=== PATIENT | male | born 1995 | race Caucasian/White ===

== ENCOUNTER 2017-08-03 01:35 | Emergency (ER) | payer BC ==
[~2017-08-03] VITALS: Ht 180.3 cm; Wt 102.1 kg
--- OUTSIDE RECORDS SUMMARY | 2017-08-03 02:03 | External Medical Summary Rpt | CCD ---
Author Author , GERMAN PORTER Address Unknown Phone [email or web address] Care Team Providers Care Processing Supervisor Name Role Phone [facility] # Unavailable Unavailable [id number], [facility] # [id number] [id number] # Unavailable Unavailable [phone], [id number] # [id number] Purpose Continuity of Care Document - 07-31-2010 through 2016 Problems Code Diagnosis DOS Provider Status I95.1 Orthostatic hypotension R10.11 Right upper quadrant pain R11.2 Nausea with vomiting, unspecified R55 Syncope and collapse S33.5XXA Sprain of ligaments of lumbar spine, initial encounter Medications Na ND Rx Da Fi Fi Am Da Di Ph RX Ph St me C No te ll ll ou ys ag ar # ys at rm s nt no ma ic us Or Da si cy ia de te s n re d VY 59 09 10 0 30 30 KR 23 YING Ac VA 41 -3 -0 .0 OG 11 WL ti NS 70 0- 4- 00 ER 64 IN ve E 10 20 20 9 40 41 11 11 PH NV 0 AR CH MG MA AE CY L CA # PS UL 14 E 36 4 VY 59 08 08 0 30 30 KR 23 YING Ac VA 41 -3 -3 .0 OG 11 WL ti NS 70 0- 0- 00 ER 16 IN ve E 10 20 20 2 40 41 11 11 PH NV 0 AR CH MG MA AE CY L CA # PS UL 14 E 36 4 VY 59 07 07 0 30 30 KR 23 YING Ac VA 41 -1 -1 .0 OG 10 WL ti NS 70 5- 6- 00 ER 51 IN ve E 10 20 20 1 40 41 11 11 PH NV 0 AR CH MG MA AE CY L CA # PS UL 14 E 36 4 VY 59 05 05 0 30 30 KR 23 YING Ac VA 41 -0 -1 .0 OG 09 WL ti NS 70 9- 5- 00 ER 62 IN ve E 10 20 20 0 40 41 11 11 PH NV 0 AR CH MG MA AE CY L CA # PS UL 14 E 36 4 VY 59 04 04 0 30 30 WA 41 YING Ac VA 41 -0 -0 .0 LG 00 WL ti NS 70 8- 8- 00 RE 30 IN ve E 10 20 20 EN 40 41 11 11 S NV 0 #9 CH MG 36 AE 0 L CA # PS 93 UL 60 E VY 59 03 03 0 30 30 KR 23 LIO Ac VA 41 -0 -0 .0 OG 08 NE ti NS 70 4- 5- 00 ER 58 S ve E 10 20 20 5 SC 20 21 11 11 PH OT 0 AR T MG MA J CY CA # PS UL 14 E 36 4 CL 63 02 02 0 30 7 KR 63 YING Ac IN 30 -0 -0 .0 OG 15 WL ti DA 40 4- 4- 00 ER 40 IN ve MY 69 20 20 1 CI 30 11 11 PH NV N 1 AR CH HC MA AE L CY L 30 # 0 MG 14 36 CA 4 PS UL E AD 54 02 02 0 30 30 KR 23 YING Ac DE 09 -0 -0 .0 OG 08 WL ti RA 20 4- 4- 00 ER 14 IN ve LL 38 20 20 3 50 11 11 PH NV XR 1 AR CH MA AE 15 CY L # MG 14 CA 36 PS 4 UL E CL 63 12 12 0 28 7 KR 63 YING Ac IN 30 -0 -0 .0 OG 08 WL ti DA 40 9- 9- 00 ER 88 IN ve MY 69 20 20 3 CI 30 10 10 PH NV N 1 AR CH HC MA AE L CY L 30 # 0 MG 14 36 CA 4 PS UL E
--- OUTSIDE RECORDS SUMMARY | 2017-08-03 02:03 | External Medical Summary Rpt | CCD ---
Demographics Preferred Language German Marital Status Unknown Sabianism Affiliation Unknown Race Unknown Ethnic Group Unknown Author Author , GERMAN PORTER Address Unknown Phone [email or web address] Care Team Providers Care Materials Buyer Name Role Phone [facility] # Unavailable Unavailable [id number], [facility] # [id number] [id number] # Unavailable Unavailable [id number], [id number] # [id number] Purpose Continuity of Care Document - 07-31-2010 through 2016 Medications Na ND Rx Da Fi Fi [...] 20 9 40 41 11 11 PH AL 0 AR CH MG MA AE CY L CA # PS UL 14 E 36 4 VY 59 08 08 0 30 30 KR 23 YING Ac VA 41 -3 -3 .0 OG 11 WL ti NS 70 0- 0- 00 ER 16 IN ve E 10 20 20 2 40 41 11 11 PH AL 0 AR CH MG MA AE CY L CA # PS UL 14 E 36 4 VY 59 07 07 0 30 30 KR 23 YING Ac VA 41 -1 -1 .0 OG 10 WL ti NS 70 5- 6- 00 ER 51 IN ve E 10 20 20 1 40 41 11 11 PH AL 0 AR CH MG MA AE CY L CA # PS UL 14 E 36 4 VY 59 05 05 0 30 30 KR 23 YING Ac VA 41 -0 -1 .0 OG 09 WL ti NS 70 9- 5- 00 ER 62 IN ve E 10 20 20 0 40 41 11 11 PH AL 0 AR CH MG MA AE CY L CA # PS UL 14 E 36 4 VY 59 04 04 0 30 30 WA 41 YING Ac VA 41 -0 -0 .0 LG 00 WL ti NS 70 8- 8- 00 RE 30 IN ve E 10 20 20 EN 40 41 11 11 S AL 0 #9 CH MG 36 AE 0 [...] # PS UL 14 E 36 4 AD 54 02 02 0 30 30 KR 23 YING Ac DE 09 -0 -0 .0 OG 08 WL ti RA 20 4- 4- 00 ER 14 IN ve LL 38 20 20 3 50 11 11 PH AL XR 1 AR CH MA AE 15 CY L # MG 14 CA 36 PS 4 UL E CL 63 02 02 0 30 7 KR 63 YING Ac IN 30 -0 -0 .0 OG 15 WL ti DA 40 4- 4- 00 ER 40 IN ve MY 69 20 20 1 CI 30 11 11 PH AL N 1 AR CH HC MA AE L CY L 30 # 0 MG 14 36 CA 4 PS UL E CL 63 12 12 0 28 7 KR 63 YING Ac IN 30 -0 -0 .0 OG 08 WL ti DA 40 9- 9- 00 ER 88 IN ve MY 69 20 20 3 CI 30 10 10 PH AL N 1 AR CH HC MA AE L CY L 30 # 0 MG 14 36 CA 4 PS UL E
--- OUTSIDE RECORDS SUMMARY | 2017-08-03 02:03 | External Medical Summary Rpt | CCD ---
Demographics Preferred Language Greek Marital Status Unknown Congregational Affiliation Unknown Race Unknown Ethnic Group Unknown Author Author , GERMAN PORTER Address Unknown Phone [email or web address] Care Team Providers Care Operations Logistics Analyst Name Role Phone [facility] # Unavailable Unavailable [id number], [facility] # [id number] [id number] # Unavailable Unavailable [id number], [facility] # [id number] Purpose Continuity of Care [...] 20 9 40 41 11 11 PH HI 0 AR CH MG MA AE CY L CA # PS UL 14 E 36 4 VY 59 08 08 0 30 30 KR 23 YING Ac VA 41 -3 -3 .0 OG 11 WL ti NS 70 0- 0- 00 ER 16 IN ve E 10 20 20 2 40 41 11 11 PH HI 0 AR CH MG MA AE CY L CA # PS UL 14 E 36 4 VY 59 07 07 0 30 30 KR 23 YING Ac VA 41 -1 -1 .0 OG 10 WL ti NS 70 5- 6- 00 ER 51 IN ve E 10 20 20 1 40 41 11 11 PH HI 0 AR CH MG MA AE CY L CA # PS UL 14 E 36 4 VY 59 05 05 0 30 30 KR 23 YING Ac VA 41 -0 -1 .0 OG 09 WL ti NS 70 9- 5- 00 ER 62 IN ve E 10 20 20 0 40 41 11 11 PH HI 0 AR CH MG MA AE CY L CA # PS UL 14 E 36 4 VY 59 04 04 0 30 30 WA 41 YING Ac VA 41 -0 -0 .0 LG 00 WL ti NS 70 8- 8- 00 RE 30 IN ve E 10 20 20 EN 40 41 11 11 S HI 0 #9 CH MG 36 AE 0 [...] 20 20 3 50 11 11 PH HI XR 1 AR CH MA AE 15 CY L # MG 14 CA 36 PS 4 UL E CL 63 02 02 0 30 7 KR 63 YING Ac IN 30 -0 -0 .0 OG 15 WL ti DA 40 4- 4- 00 ER 40 IN ve MY 69 20 20 1 CI 30 11 11 PH HI N 1 AR CH HC MA AE L CY L 30 # 0 MG 14 36 CA 4 PS UL E CL 63 12 12 0 28 7 KR 63 YING Ac IN 30 -0 -0 .0 OG 08 WL ti DA 40 9- 9- 00 ER 88 IN ve MY 69 20 20 3 CI 30 10 10 PH HI N 1 AR CH HC MA AE L CY L 30 # 0 MG 14 36 CA 4 PS UL E
--- OUTSIDE RECORDS SUMMARY | 2017-08-03 02:03 | External Medical Summary Rpt | CCD ---
Author Author , GERMAN PORTER Address Unknown Phone [email or web address] Care Team Providers Care Ordnance Equipment Worker Name Role Phone [facility] # Unavailable Unavailable [id number], [facility] # [id number] [id number] # Unavailable Unavailable 9360, [id number] [...] 20 9 40 41 11 11 PH RI 0 AR CH MG MA AE CY L CA # PS UL 14 E 36 4 VY 59 08 08 0 30 30 KR 23 YING Ac VA 41 -3 -3 .0 OG 11 WL ti NS 70 0- 0- 00 ER 16 IN ve E 10 20 20 2 40 41 11 11 PH RI 0 AR CH MG MA AE CY L CA # PS UL 14 E 36 4 VY 59 07 07 0 30 30 KR 23 YING Ac VA 41 -1 -1 .0 OG 10 WL ti NS 70 5- 6- 00 ER 51 IN ve E 10 20 20 1 40 41 11 11 PH RI 0 AR CH MG MA AE CY L CA # PS UL 14 E 36 4 VY 59 05 05 0 30 30 KR 23 YING Ac VA 41 -0 -1 .0 OG 09 WL ti NS 70 9- 5- 00 ER 62 IN ve E 10 20 20 0 40 41 11 11 PH RI 0 AR CH MG MA AE CY L CA # PS UL 14 E 36 4 VY 59 04 04 0 30 30 WA 41 YING Ac VA 41 -0 -0 .0 LG 00 WL ti NS 70 8- 8- 00 RE 30 IN ve E 10 20 20 EN 40 41 11 11 S RI 0 #9 CH MG 36 AE 0 [...] 20 1 CI 30 11 11 PH RI N 1 AR CH HC MA AE L CY L 30 # 0 MG 14 36 CA 4 PS UL E AD 54 02 02 0 30 30 KR 23 YING Ac DE 09 -0 -0 .0 OG 08 WL ti RA 20 4- 4- 00 ER 14 IN ve LL 38 20 20 3 50 11 11 PH RI XR 1 AR CH MA AE 15 CY L # MG 14 CA 36 PS 4 UL E CL 63 12 12 0 28 7 KR 63 YING Ac IN 30 -0 -0 .0 OG 08 WL ti DA 40 9- 9- 00 ER 88 IN ve MY 69 20 20 3 CI 30 10 10 PH RI N 1 AR CH HC MA AE L CY L 30 # 0 MG 14 36 CA 4 PS UL E
--- OUTSIDE RECORDS SUMMARY | 2017-08-03 02:04 | External Medical Summary Rpt | CCD ---
Demographics Preferred Language Slovenian Marital Status Unknown Denominational Affiliation Unknown Race Unknown Ethnic Group Unknown Author Author , IFEANYI PORTER Address Unknown Phone Immunization Unable to retrieve immunization data due to connection failure with Immunization Registry. Please try again later.
--- OUTSIDE RECORDS SUMMARY | 2017-08-03 02:04 | External Medical Summary Rpt | CCD ---
Demographics Preferred Language Turkmen Marital Status Unknown Uatsdin Affiliation Unknown Race Unknown Ethnic Group Unknown Author Author , IFEANYI PORTER Address Unknown Phone Immunization Unable to retrieve immunization data due to connection failure with Immunization Registry. Please try again later.
[2017-08-03 02:25] LABS: LYMPH # 1.3 K/mm3 (0.7-4.5); LYMPH % 8.2 % (10-50)
[2017-08-03 02:32] LABS: HEMOGLOBIN 15.3 g/dL (14.1-18.0)
--- NOTE | 2017-08-03 02:46 | Emergency Room Report ---
History of Present Illness Time Seen by MD Evans Presenting Problem in Triage Pt arrived:Wheelchair Presenting Problem:C/O FEVER, COUGHING, SNEEZING, ACHING ALL OVER AND CHILLING Onset of symptoms date/time:08/01/17/ or onset unknown for:MEDICAL HX UNKNOWN Treatment Prior to Arrival: GLASS WORKER Provided by: Sepsis Risk Assessment: Temp: 98.9 B/P: 157/95 MAP: 115 Pulse: 112 Resp: 18 Recent fever? N Clinical Suspician of Infection? N Mental Status: 1 - Regular (Normal Baseline) Sepsis Risk:Low Sepsis Risk Have you (or family members/close friends) recently traveled outside the [place]? N If Yes, where/when: Have you had exposure to infectious disease within the past month? N TB? Other? 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 No Angina: No TN: No Hypertension? No Hyperlipidemia? No CHF? No DVT? No PE? No COPD? No Asthma? No Anemia? No GERD? No Gastric ulcers? No GI Bleed? No Hernia? No Thyroid Problems? No Hypothyroidism? No CVA? No Seizures? No Diabetes? No Renal Insuffiency? No End Stage Renal Disease? No UTI? No Stones? No BPH? No GB Disease: No Nephritic Syndrome? No Asplenia? No Hepatitis? No Sickle Cell Disease? No Arthritis? No Migraines? No Cataracts? No Glaucoma? No MRSA? No HIV? No TB? No Anxiety? No Depression? No Cancer? No More? No Immunization Hx DT/Tetanus Unknown Surgical Hx Previous Surgery?Y APPY Social History Smoking Hx Smoker: Current Every Day Smoker Tobacco: Yes Type Cigarettes Drugs none Review of Systems All Other Systems Reviewed and Negative Constitutional see HPI, fever Eyes denies drainage ENT denies: ear discharge, epistaxis, throat pain. Respiratory see HPI, cough, denies shortness of breath, denies wheezing Cardiovascular denies chest pain, denies palpitations, denies syncope Gastrointestinal denies abdominal pain, denies diarrhea, denies vomiting Genitourinary denies: dysuria, frequency, hesitancy, hematuria. Musculoskeletal denies back pain, denies joint pain, denies joint swelling, denies neck pain Skin denies rash Psychiatric/Neurological denies headache, denies seizure Physical Exam Vital Signs Vital Signs Date Time Temp Pulse Resp B/P Pulse O2 O2 Flow FiO2 Ox Delivery Rate 08/03 015 98.9 112 18 157/95 92 - WBC >12,000 or <4,000 or 10% bands? 2 or more SIRS Criteria Met? B/P:157/95 MAP:115 Creatinine >2.0? UA output<0.5ml/kg/hr for 2 hrs? Platelet count >100,000? Lactate >2.0mmol/1? INR >1.2 or PTT > than 60 sec? Evidence of Organ Dysfunction? Provider documented clinical suspician of infection? N Sepsis Criteria Count: 1 Sepsis Risk: Low Sepsis Risk General Appearance no apparent distress Eye Exam - bilateral eye PERRL, bilateral eye EOMI Ear, Nose, Throat normal ENT inspection Neck supple Respiratory Status No: respiratory distress. Lung Sounds bilateral: rhonchi. Cardiovascular regular rate/rhythm, systolic murmur Peripheral Pulses Pulses normal Yes Gastrointestinal soft Extremities normal inspection Strength 4 Upper Ext (L), 4 Upper Ext (R), 4 Lower Ext (L), 4 Lower Ext (R) Neurologic alert, regional economic liaison II-XII nml as tested, no motor/sensory deficits Reflexes Reflexes normal No Mental status normal mood/affect Skin intact Medical Decision Making LABS/Meds/Orders Pt receiving controlled substance in ED? No Results/Orders Laboratory Tests 08/03/17 0205: Lactic Acid 1.9, WBC 15.0 H, RBC 5.02, Hgb 15.3, Hct 43.6, MCV 86.8, RDW 13.1, Plt Count 210, MPV 8.8, Gran % 84.2 H, Gran # 12.7 H, Total Counted Pending, Lymphocytes % 8.2 L, Monocytes % 5.2, Eosinophils % 2.2, Basophils % 0.2, Neutrophils Pending, Lymphocytes (Manual) Pending, Lymphocytes # 1.3, Monocytes # 0.8, Eosinophils # 0.3, Basophils # 0.0, Platelet Estimate Pending, PUBS MCHC 35.1, MCH 30.5 08/03/17 0150: Influenza Type A Ag NOT DETECTED, Influenza Type B Ag NOT DETECTED Current Medication Orders Sig/Belle Start time Last Medication Dose Route Stop Time Status Admin Albuterol 2 PUFFS ONCE ONE 08/03 300 AC IH 08/03 301 Benzonatate 100 MG ONCE ONE 08/03 300 AC PO 08/03 301 Ceftriaxone Sodium 1 GM ONCE ONE 08/03 300 AC Sodium Chloride 50 ML IV 08/03 032 Methylprednisolone 125 MG ONCE ONE 08/03 300 AC Sodium Succinate IV 08/03 301 Miscellaneous 1 UNIT ONCE ONE 08/03 300 AC XX 08/03 030 Albuterol 0 .STK-MED ONE 08/03 258 DC IH Miscellaneous 0 .STK-MED ONE 08/03 258 DC XX Methylprednisolone 0 .STK-MED ONE 08/03 257 DC Sodium Succinate .ROUTE Sodium Chloride 50 ML .STK-MED ONE 08/03 256 DC IV Ceftriaxone Sodium 0 .STK-MED ONE 08/03 255 DC IV Sodium Chloride 1,000 ML .Q1H1M 08/03 021 AC 08/03 IV 08/03 031 0209 Sodium Chloride 10 ML PRN PRN 08/03 021 AC IV 08/04 0207 Sodium Chloride 1,000 ML .STK-MED ONE 08/03 020 DC IV Sodium Chloride 10 ML PRN PRN 08/03 0200 AC IV 08/04 0157 Orders Procedure Date/time Status RT REQUEST ALBUTEROL INHALER 08/03 025 Active DIFFERENTIAL-WBC 08/03 205 Active CHEST(2 VIEWS-NOT PORTABLE) 08/03 159 Active IV SALINE LOCK 08/03 159 Active CULTURE, BLOOD 08/03 159 Active LACTIC ACID 08/03 159 Complete INFLUENZA A&B ANTIGENS 08/03 159 Complete CBC WITH AUTO DIFF 08/03 159 Active CHEM 12 PROFILE 08/03 159 Active XRAY/CT/US XRAY/CT/US XRAY chest XR interpretation by reviewed by me Xray Results abnormal (perihilar changes ) Departure Departure Time of Disposition 025 Disposition DC Home or Self Care(routine) Clinical Impression Primary Impression: Bronchitis Condition STABLE Referrals ART LUU (Family) Patient Instructions DI for Cough -- Adult Additional Instructions use meds and see pcp for follow up Discharge Counseling Counseled pt/family regarding diagnosis, test results, medications/RX, follow up needs Prescriptions Current Visit Scripts Prednisone (Prednisone 20MG) 20 MG PO BID #10 TAB BENZONATATE (Benzonatate) 100 MG PO TID #15 CAP Azithromycin (Zithromycin (Z-ESTER) 250MG Tab) 250 MG PO DAILY #6 TAB TAKE TWO (2) TABLETS ON DAY 1, THEN ONE (1) TABLET DAY #2 THRU #5 ED Critical Care Critical Care No at 0254
[2017-08-03] MEDS ORDERED: TESSALON PERLE100 MG PO (02:59)
[2017-08-03] MEDS ORDERED: ZITHROMAX Z PA250 MG PO (02:59)
[2017-08-03] MEDS ORDERED: PREDNISONE 20MG20 MG PO (02:59)
[2017-08-03 03:05] VITALS: BP 157/95
[2017-08-03 04:03] LABS: NEUTROPHILS 86 % (42-76)
--- NOTE | 2017-08-03 05:17 | RADIOLOGY REPORT PS360 ---
CHEST(2 VIEWS-NOT PORTABLE) HISTORY: Cough and congestion CONGESTION ORDERING PHYSICIAN: Adrien Navarrete MD PATIENT AGE: 21 years COMPARISON: None available FINDINGS: The cardiomediastinal silhouette and pulmonary vascularity are within normal limits. The lungs are clear without infiltrates, suspicious nodules, or pleural effusions. No acute bony abnormalities. IMPRESSION: Negative chest, no acute finding
== END 2017-08-03 03:43 | disposition home or self-care (01) ==
LOC: ER 01:35
PROVIDERS: Emergency Medicine
DX: J40 Bronchitis, not specified as acute or chronic (principal); Z72.0 Tobacco use